=== PATIENT | male | born 1960 | race Caucasian/White ===

== ENCOUNTER → 2024-06-05 07:07 | Outpatient (REF) | payer BC, SELFPAY | LOC: HWRAD 07:07 | PROVIDERS: ATTENDING PHYSICIAN Family Medicine | DX: K80.20 Calculus of gallbladder without cholecystitis without obstruction (principal); K63.5 Polyp of colon | CPT/HCPCS: 76700 ==

== ENCOUNTER 2024-12-27 16:49 | Emergency (ER) | payer OTHER, SELFPAY ==
[2024-12-27 16:53] VITALS: BP 137/80
[2024-12-27 17:16] VITALS: BMI 26.1
[2024-12-27] MEDS: MOTRIN 400 MG PO (17:48)
--- NOTE | 2024-12-27 17:54 | ED.GENMED ---
History of Present Illness
General
Chief Complaint: Musculo-Skeletal Complaint
Source: patient
Exam Limitations: none
Time Seen by Provider: 12/27/24 17:06
Nursing documentation reviewed up to this point in time: agreed with
History of Present Illness
History of Present Illness:
The patient is a pleasant 64-year-old male presenting to emergency department after mechanical fall yesterday and gradually worsening right shoulder pain. Patient tripped over something while he was walking and fell landing on his right shoulder. He
denies any associated head strike or loss of consciousness. Patient noticed pain in right shoulder/axilla that is worse with movement. He is hearing a �clicking� sound when ranging his shoulder. He denies numbness/tingling or weakness in right upper
extremity. Denies any other associated injuries. No neck pain, back pain, chest pain, or shortness of breath.
Past History
Past History
ED Past Medical History: None
ED Past Surgical History: Other (Granuloma/throat)
Social History
Tobacco: Smoker
Alcohol: Occasional
Drug: None
Living: with family
Employment: Employed
Family History
Family History: Early CAD
Review of Systems
Review of Systems
Allergies reviewed?: Yes
All Other Systems: ROS reviewed and negative except as documented in HPI and ROS
Phy Exam
Physical Exam
Physical Exam:
Vitals: Mildly hypertenive otherwise vital signs are stable. Afebrile
General: Patient is well appearing, no acute distress
Skin: Warm and dry, no rashes or lesions
Head: Normocephalic, atraumatic
Throat: Protecting airway
Neck: Normal ROM, no cervical spine tenderness
Cardiac: Regular rate. No chest wall tenderness or ecchymoses.
Pulm: No apparent respiratory distress. Lungs clear bilaterally.
Abdomen: Nondistended
Extremities: No deformity or bony tenderness of RUE. Mild reproducible tenderness near posterior axillary fold. Excellent ROM in right shoulder against resistant including flexion/extension and adduction/abduction. Right elbow atraumatic and
nontender with full ROM. Sensation of RUE intact with palpable radial pulse and normal capillary refill. No tendernes or step off of clavicle.
Neuro: Grossly intact
Psychiatric: Normal affect.
Course
Orders/Labs/Results
Orders:
Orders
12/27/24 16:50
Shoulder, Right, Trauma [CR Shoulder, Trauma - Right] Urgent
Comment:
Reason For Exam: fall last night
12/27/24 17:45
Ibuprofen [Motrin] 400 mg PO NOW STA
12/27/24 18:38
Sling Right-Treatment ONCE
Vital Signs
Initial and Last Documented VS:
Initial Vital Signs
Temp Pulse Resp BP Pulse Ox
97.9 F 69 18 137/80 95
12/27/24 16:53 12/27/24 16:53 12/27/24 16:53 12/27/24 16:53 12/27/24 16:53
Last Documented Vital Signs
Temp Pulse Resp BP Pulse Ox
97.9 F 68 16 153/83 97
12/27/24 16:53 12/27/24 18:53 12/27/24 18:53 12/27/24 18:53 12/27/24 18:53
MDM/Problems Addressed
Differential Diagnosis Includes:
Not limited to: rotator cuff muscular strain, contusion, shoulder dislocation, proximal humerus fracture, clavicle fracture, etc
MDM/Problems Addressed:
64 year-old male with right shoulder pain after mechanical fall last night. No associated head strike or loss of conscious. Vitals and physical exam as above. Patient has no obvious deformity of RUE. There is no bony tenderness of RUE w/ excellent
range of motion in right shoulder. He does a mild reproducible tenderness near posterior axillary fold. RUE neurovascularly intact without concern for axillary nerve injury. X-ray of right shoulder reviewed by me without acute fracture or
dislocation. Ultimately- high suspicion for muscular strain/ligamentous injury likely of rotator cuff muscles. Will place patient in shoulder sling and advise rest, ice, tylenol. He will follow-up with orthopedics for further evaluation and
potential further imaging as needed. Return precautions discussed.
Chronic conditions affecting care:
N/A
Acute Exacerbation and/or Progression of Chronic Illness:
N/A
*Radiology
Radiology exam reviewed: preliminary read by ED provider (shoulder xray reviewed by me - no acute fracture or dislocation)
*Pulse Oximetry
Patient hypoxic: no
*EKG
Interpreted by ED Provider?: NA
*Transcribing Machine Mechanic Interpretation
Rate: Transcribing Machine Mechanic- N/A
*Critical Care Note
Total Time (30-74mins, 75-104mins- exclusive of procedures): Not Applicable
ED Attending Note
-
Portions of this chart may have been created with voice recognition software.� Occasional wrong word or��sound alike� substitutions may have occurred due to the inherent limitations of voice recognition software.
Discharge Plan
Departure
Patient Disposition: Home (Routine Discharge)
Date of Disposition: 12/27/24
Time of Disposition: 18:39
Patient with high blood pressure during this ER visit?: Yes
Discharge Problem:
Injury of right shoulder
Instructions: Rotator Cuff Injury (DC), Shoulder pain - ED discharge instructions
Prescriptions:
No Action
Fluconazole
2 inh intranasal BID
Tadalafil
10 mg PO DAILYPRN PRN (Reason: for intercourse)
Temazepam
1 tab PO
Zaleplon
1 tab PO HS
Referrals:
Zain Stockton MD [Active] - Call in 1-3 days for appt
Deysi Jarvis NP [Family Provider] -
Activity Restrictions/Additional Instructions:
Return to the emergency department with any intractable pain, numbness/tingling in right upper extremity, significant weakness in right lower extremity, severe neck pain or any other concerns
-As discussed�your x-ray showed no evidence of acute fracture while in the emergency department.
-Keep right arm in sling until cleared by orthopedics. Be sure to rotate your shoulder frequently throughout the day to prevent frozen shoulder. You should ice your right shoulder and take Tylenol/Motrin as needed for pain
-Follow-up with orthopedics for further evaluation/management. Contact information has been provided for you above. You can also see your orthopedic at [place] who is treated your left shoulder.
Monitor your symptoms closely and return to the emergency department with any acute worsening/new symptoms or any other concerns
Interventions
Interventions:
*Risk Screen - Suicide Last Done: 12/27/24 16:57
*General Assessment Last Done: 12/27/24 16:57
*Neglect/Abuse Screening Last Done: 12/27/24 16:57
*ED- Fall Risk Assessment Last Done: 12/27/24 17:03
*ED COVID-19 Vaccine History Last Done: 12/27/24 16:57
*Nursing Disposition Last Done: 12/27/24 18:53
ED-Musculoskeletal Assessment Last Done: 12/27/24 17:16
Discharge Date and Time
Discharge Date/Time: 12/27/24 18:54
Print Language: THAI
[2024-12-27 18:53] VITALS: BP 153/83
== END 2024-12-27 18:54 | disposition home or self-care (01) ==
LOC: EMR 16:49
PROVIDERS: EMERGENCY PHYSICIAN Emergency Medicine; FAMILY PHYSICIAN Nurse Practitioner Family
DX: S49.91XA Unspecified injury of right shoulder and upper arm, initial encounter (principal); W01.0XXA Fall on same level from slipping, tripping and stumbling without subsequent striking against object, initial encounter; F17.200 Nicotine dependence, unspecified, uncomplicated; Y93.01 Activity, walking, marching and hiking; Z82.49 Family history of ischemic heart disease and other diseases of the circulatory system
CPT/HCPCS: 99283; 73030

== ENCOUNTER → 2025-01-13 20:09 | Outpatient (REF) | payer OTHER, SELFPAY | LOC: MRI 3T 20:09 | PROVIDERS: ATTENDING PHYSICIAN Internal Medicine; FAMILY PHYSICIAN Nurse Practitioner Family | DX: S43.421A Sprain of right rotator cuff capsule, initial encounter (principal) | CPT/HCPCS: 73221 ==